=== PATIENT | male | born 1960 | race Caucasian/White ===

== ENCOUNTER 2019-09-27 18:44 | Inpatient (IN) | payer MEDICARE, MEDICAID ==
[~2019-09-27] VITALS: Ht 172.7 cm; Wt 70.6 kg
[2019-09-27 19:41] LABS: BASOPHILS % (AUTO) 0.4 % (0.0-2.0); EOSINOPHILS % (AUTO) 1.4 % (1.0-6.0); HEMATOCRIT 38.5 % (41-53); HEMOGLOBIN 12.9 g/dL (13.5-17.5); LYMPHOCYTES # (AUTO) 1.6 K/uL (1.0-4.8); LYMPHOCYTES % (AUTO) 24.5 % (22.0-44.0); MEAN CORPUSCULAR HGB CONC 33.4 G/dL (31.0-37.0); MEAN CORPUSCULAR VOLUME 90 fL (80-100); MONOCYTES # (AUTO) 0.7 K/uL (0.1-1.0); MONOCYTES % (AUTO) 11.3 % (2.0-9.0); NEUTROPHILS % (AUTO) 62.4 % (40.0-70.0); PLATELET COUNT (AUTO) 249 K/uL (150-450); RED BLOOD CELL COUNT(AUTO) 4.29 MIL/uL (4.50-5.90); RED CELL DISTRIBUTION WIDTH 13.4 % (11.5-14.5)
[2019-09-27 19:50] LABS: ANION GAP 13 mmol/L (8-16); CALCIUM, TOTAL 9.5 mg/dL (8.8-10.5); CARBON DIOXIDE 28 mmol/L (22-29); CHLORIDE 103 mmol/L (98-107); CREATININE 1.23 mg/dL (0.60-1.30); GLOMERULAR FILTR. RATE CALC 60 mL/min (>60); GLUCOSE,RANDOM 101 mg/dL (70-110); POTASSIUM 3.3 mmol/L (3.5-5.1); SODIUM SERUM 144 mmol/L (136-145); UREA NITROGEN, BLOOD 30 mg/dL (7-18)
[2019-09-27 19:56] LABS: ALANINE AMINOTRANSFERASE 25 U/L (12-78); ALKALINE PHOSPHATASE 91 U/L (46-116); ASPARTATE AMINOTRANSFERASE 21 U/L (15-37); BILIRUBIN,TOTAL 0.5 mg/dL (0.1-1.0); TOTAL PROTEIN, SERUM 6.9 g/dL (6.4-8.2)
[2019-09-27 21:42] LABS: APPEARANCE,URINE CLEAR (CLEAR); BILIRUBIN,URINE NEGATIVE (NEGATIVE); GLUCOSE, URINE (UA) NEGATIVE (NEGATIVE); KETONES,URINE TRACE mg/dL (NEGATIVE); LEUKOCYTE ESTERASE ,URINE NEGATIVE (NEGATIVE); NITRATE,URINE NEGATIVE (NEGATIVE); OCCULT BLOOD,URINE NEGATIVE (NEGATIVE); PH,URINE 5.5 (5.0-8.0); PROTEIN,URINE NEGATIVE (NEGATIVE); UROBILINOGEN,URINE 0.2 mg/dL (<=1.0)
[2019-09-27 21:47] LABS: AMPHET/METH SCREEN,URINE NEGATIVE (NEGATIVE); BARBITURATE SCREEN, URINE NEGATIVE (NEGATIVE); BENZODIAZEPINES SCREEN,URINE NEGATIVE (NEGATIVE); CANNABINOID SCREEN,URINE POSITIVE (NEGATIVE); COCAINE SCREEN,URINE NEGATIVE (NEGATIVE); METHADONE SCREEN, URINE NEGATIVE (NEGATIVE); OPIATE SCREEN,URINE POSITIVE (NEGATIVE); PHENCYCLIDINE SCREEN,URINE NEGATIVE (NEGATIVE)
[2019-09-27 22:10] LABS: CREATINE KINASE, TOTAL ONLY 114 U/L (39-308)
[2019-09-27] MEDS ORDERED: HALOPERIDOL LACTATE 5 MG/ML VIAL IM ONE (22:30)
[2019-09-27] MEDS ORDERED: LORazepam 2 MG/ML VIAL IM ONE (22:30)
[2019-09-27] MEDS ORDERED: LORazepam 2 MG TABLET PO PRN (22:45)
[2019-09-27 23:12] LABS: BACTERIA,URINE None Seen /HPF (None Seen); RBC,URINE None Seen /HPF (0-2); SQUAMOUS EPITHELIAL CELL,UR Rare /LPF (None Seen); WBC,URINE 0-2 /HPF (0-5)
[2019-09-28 02:47] VITALS: BP 141/78
[2019-09-28] MEDS ORDERED: POTASSIUM CHLORIDE 20 MEQ ER TABLET PO ONE (06:30)
[2019-09-28 08:18] LABS: CHOL/HDL RATIO 2.2 (4.2-7.3)
[2019-09-28 08:28] VITALS: BP 125/74
[2019-09-28] MEDS ORDERED: CloNIDine HCL 0.1 MG TABLET PO PRN (09:45)
[2019-09-28] MEDS ORDERED: LOPERAMIDE HCL 2 MG CAPSULE PO PRN ×2 (09:45→12:45)
[2019-09-28] MEDS ORDERED: MAGNESIUM HYDROXIDE SUSPENSION 30 ML UDCUP PO PRN ×2 (09:45→12:45)
[2019-09-28] MEDS ORDERED: GuaiFENesin/D-METHORPHAN [SUGAR-FREE] 200-20MG/10 ML SYRUP UDCUP PO PRN ×2 (09:45→12:45)
[2019-09-28] MEDS ORDERED: ACETAMINOPHEN 325 MG TABLET PO PRN ×2 (09:45→12:45)
[2019-09-28] MEDS ORDERED: NICOTINE 14 MG/24 HOUR PATCH TD PRN (09:45)
[2019-09-28] MEDS ORDERED: ALBUTEROL SULFATE HFA 90 MCG/PUFF 8 GM INHALER IH PRN (09:45)
[2019-09-28] MEDS ORDERED: MAG HYDROX/AL HYDROX/SIMETH ES 30 ML SUSPENSION UDCUP PO PRN ×2 (09:45→12:45)
[2019-09-28] MEDS ORDERED: ONDANSETRON HCL 4 MG TABLET PO PRN (09:45)
[2019-09-28] MEDS ORDERED: DOCUSATE SODIUM 100 MG CAPSULE PO PRN (09:45)
[2019-09-28] MEDS ORDERED: PETROLATUM,WHITE 28 GM JELLY TP PRN (09:45)
[2019-09-28] MEDS ORDERED: TUBERCULIN, PURIFIED PROTEIN DERIVATIVE 5 TU/0.1 ML SYRINGE ID ONE (12:45)
[2019-09-28] MEDS ORDERED: HydrOXYzine PAMOATE 50 MG CAPSULE PO PRN (12:45)
[2019-09-28] MEDS ORDERED: PROMETHAZINE HCL 25 MG TABLET PO PRN (12:45)
[2019-09-28 16:44] VITALS: BP 115/92
[2019-09-28] MEDS: IBUPROFEN 400 MG TABLET PO PRN (16:51)
[2019-09-28] MEDS: THIAMINE 100 MG TABLET PO SCH (16:51)
[2019-09-28] MEDS: OLANZapine 5 MG RAPDIS TABLET PO SCH (20:12)
[2019-09-29] VITALS (10 sets, daily range): BP systolic 141–167; BP diastolic 86–113
[2019-09-29] MEDS: DIAZEPAM 10 MG TABLET PO PRN ×5 (00:04→22:33)
[2019-09-29] MEDS: ZOLPIDEM TARTRATE 10 MG TABLET PO PRN (00:04)
[2019-09-29] MEDS: OLANZapine 5 MG RAPDIS TABLET PO PRN ×2 (04:59→09:14)
[2019-09-29] MEDS: THIAMINE 100 MG TABLET PO SCH ×2 (08:20→16:15)
[2019-09-29] MEDS: FOLIC ACID 1 MG TABLET PO SCH (08:20)
[2019-09-29] MEDS: MULTIVITAMINS WITH MINERALS, THERAPEUTIC TABLET PO SCH (08:20)
[2019-09-29] MEDS: NALTREXONE HCL 50 MG TABLET PO SCH (08:20)
[2019-09-29 08:24] LABS: HEMOGLOBIN A1C 5.8 % (3.8-5.6)
[2019-09-29 08:46] LABS: CHOL/HDL RATIO 2.4 (4.2-7.3); FREE T4 (FREE THYROXINE) 1.28 ng/dL (0.76-1.46); POTASSIUM 3.1 mmol/L (3.5-5.1); THYROID STIMULATING HORMONE 7.29 uIU/mL (0.36-3.74)
[2019-09-29] MEDS: AmLODIPine BESYLATE 5 MG TABLET PO SCH (09:14)
[2019-09-29] MEDS: IBUPROFEN 400 MG TABLET PO PRN (09:15)
[2019-09-29] MEDS ORDERED: DiphenhydrAMINE HCL 50 MG/ML VIAL IM ONE (09:30)
[2019-09-29] MEDS ORDERED: HALOPERIDOL LACTATE 5 MG/ML VIAL IM ONE (09:30)
[2019-09-29] MEDS ORDERED: HydrOXYzine PAMOATE 50 MG CAPSULE PO PRN (09:30)
[2019-09-29] MEDS ORDERED: LORazepam 2 MG/ML VIAL IM ONE (09:30)
[2019-09-29] MEDS ORDERED: IBUPROFEN 600 MG TABLET PO PRN (09:30)
[2019-09-29] MEDS ORDERED: MAG HYDROX/AL HYDROX/SIMETH ES 30 ML SUSPENSION UDCUP PO PRN (09:30)
[2019-09-29] MEDS ORDERED: ATOR40TA28 PO (09:43)
[2019-09-29] MEDS ORDERED: CHL25 PO (09:43)
[2019-09-29] MEDS ORDERED: SIMV-260 PO (09:43)
[2019-09-29] MEDS ORDERED: METO-558 PO (09:43)
[2019-09-29] MEDS ORDERED: CYCL10 PO (09:43)
[2019-09-29] MEDS ORDERED: DULO30CA2 PO (09:43)
[2019-09-29] MEDS ORDERED: PANT-31 PO (09:43)
[2019-09-29] MEDS ORDERED: AMLO10TA7 PO (09:43)
[2019-09-29] MEDS ORDERED: ASPI-1111 PO (09:43)
[2019-09-29] MEDS: CloNIDine HCL 0.1 MG TABLET PO SCH ×3 (12:16→21:34)
[2019-09-29] MEDS ORDERED: POTASSIUM CHLORIDE 20 MEQ ER TABLET PO ONE (16:30)
[2019-09-29] MEDS: OLANZapine 5 MG RAPDIS TABLET PO SCH (20:18)
[2019-09-30] VITALS (16 sets, daily range): BP systolic 95–190; BP diastolic 65–110
[2019-09-30] MEDS: CloNIDine HCL 0.1 MG TABLET PO PRN (01:56)
[2019-09-30] MEDS: IBUPROFEN 400 MG TABLET PO PRN ×3 (01:56→20:08)
[2019-09-30] MEDS: ZOLPIDEM TARTRATE 10 MG TABLET PO PRN ×2 (02:42→23:22)
[2019-09-30] MEDS: CloNIDine HCL 0.1 MG TABLET PO SCH ×4 (05:52→21:00)
[2019-09-30] MEDS: MULTIVITAMINS WITH MINERALS, THERAPEUTIC TABLET PO SCH (08:46)
[2019-09-30] MEDS: DIAZEPAM 10 MG TABLET PO SCH ×4 (08:46→20:09)
[2019-09-30] MEDS: FOLIC ACID 1 MG TABLET PO SCH (08:47)
[2019-09-30] MEDS: THIAMINE 100 MG TABLET PO SCH ×2 (08:47→16:44)
[2019-09-30] MEDS: NALTREXONE HCL 50 MG TABLET PO SCH (08:47)
[2019-09-30] MEDS: AmLODIPine BESYLATE 5 MG TABLET PO SCH (08:47)
[2019-09-30] MEDS: OLANZapine 5 MG RAPDIS TABLET PO PRN (10:14)
[2019-09-30] MEDS ORDERED: POTASSIUM CHLORIDE 20 MEQ ER TABLET PO ONE (10:15)
[2019-09-30] MEDS: OLANZapine 5 MG RAPDIS TABLET PO SCH (20:09)
[2019-10-01] VITALS (9 sets, daily range): BP systolic 93–154; BP diastolic 73–112
[2019-10-01] MEDS: TraMADol HCL 50 MG TABLET PO PRN ×2 (01:12→23:40)
[2019-10-01] MEDS: CloNIDine HCL 0.1 MG TABLET PO SCH ×4 (06:01→21:41)
[2019-10-01] MEDS: TAMSULOSIN HCL 0.4 MG CAPSULE PO SCH (08:17)
[2019-10-01] MEDS: FINASTERIDE 5 MG TABLET PO SCH (08:17)
[2019-10-01] MEDS: THIAMINE 100 MG TABLET PO SCH ×2 (08:17→16:15)
[2019-10-01] MEDS: MULTIVITAMINS WITH MINERALS, THERAPEUTIC TABLET PO SCH (08:17)
[2019-10-01] MEDS: NALTREXONE HCL 50 MG TABLET PO SCH (08:17)
[2019-10-01] MEDS: DIAZEPAM 10 MG TABLET PO SCH ×4 (08:17→20:43)
[2019-10-01] MEDS: AmLODIPine BESYLATE 5 MG TABLET PO SCH (08:17)
[2019-10-01] MEDS: FOLIC ACID 1 MG TABLET PO SCH (08:17)
[2019-10-01] MEDS: OLANZapine 5 MG RAPDIS TABLET PO SCH (20:43)
[2019-10-01] MEDS: DIAZEPAM 10 MG TABLET PO PRN (23:47)
[2019-10-02 00:45] VITALS: BP 112/75
[2019-10-02] MEDS: OLANZapine 5 MG RAPDIS TABLET PO PRN (03:23)
[2019-10-02] MEDS: DIAZEPAM 10 MG TABLET PO PRN (03:23)
[2019-10-02] MEDS: CloNIDine HCL 0.1 MG TABLET PO SCH ×4 (05:56→21:50)
[2019-10-02] MEDS ORDERED: DIAZEPAM 5 MG TABLET PO PRN (07:00)
[2019-10-02 08:00] VITALS: BP 137/91
[2019-10-02] MEDS: MULTIVITAMINS WITH MINERALS, THERAPEUTIC TABLET PO SCH (08:43)
[2019-10-02] MEDS: DIAZEPAM 5 MG TABLET PO SCH ×4 (08:43→20:50)
[2019-10-02] MEDS: AmLODIPine BESYLATE 5 MG TABLET PO SCH (08:43)
[2019-10-02] MEDS: THIAMINE 100 MG TABLET PO SCH ×2 (08:43→16:36)
[2019-10-02] MEDS: FOLIC ACID 1 MG TABLET PO SCH (08:44)
[2019-10-02] MEDS: TAMSULOSIN HCL 0.4 MG CAPSULE PO SCH (08:44)
[2019-10-02] MEDS: DISULFIRAM 250 MG TABLET PO SCH (08:45)
[2019-10-02 12:00] VITALS: BP 141/101
[2019-10-02] MEDS: FINASTERIDE 5 MG TABLET PO SCH (12:28)
[2019-10-02 16:36] VITALS: BP 120/80
[2019-10-02 16:39] VITALS: BP 120/80
[2019-10-02] MEDS: OLANZapine 5 MG RAPDIS TABLET PO SCH (20:50)
[2019-10-03] VITALS (10 sets, daily range): BP systolic 98–140; BP diastolic 71–92
[2019-10-03] MEDS: ZOLPIDEM TARTRATE 10 MG TABLET PO PRN (00:40)
[2019-10-03] MEDS: TraMADol HCL 50 MG TABLET PO PRN ×3 (02:06→20:37)
[2019-10-03] MEDS: CloNIDine HCL 0.1 MG TABLET PO SCH ×4 (06:02→22:06)
[2019-10-03] MEDS ORDERED: DIAZEPAM 5 MG TABLET PO PRN (07:00)
[2019-10-03] MEDS: MULTIVITAMINS WITH MINERALS, THERAPEUTIC TABLET PO SCH (08:20)
[2019-10-03] MEDS: FINASTERIDE 5 MG TABLET PO SCH (08:21)
[2019-10-03] MEDS: FOLIC ACID 1 MG TABLET PO SCH (08:21)
[2019-10-03] MEDS: THIAMINE 100 MG TABLET PO SCH ×2 (08:21→16:34)
[2019-10-03] MEDS: TAMSULOSIN HCL 0.4 MG CAPSULE PO SCH (08:22)
[2019-10-03] MEDS: DISULFIRAM 250 MG TABLET PO SCH (08:23)
[2019-10-03] MEDS: AmLODIPine BESYLATE 5 MG TABLET PO SCH (11:35)
[2019-10-03] MEDS: OLANZapine 5 MG RAPDIS TABLET PO SCH (20:36)
[2019-10-04] VITALS (7 sets, daily range): BP systolic 114–151; BP diastolic 60–106
[2019-10-04] MEDS: CloNIDine HCL 0.1 MG TABLET PO PRN (01:49)
[2019-10-04] MEDS: ZOLPIDEM TARTRATE 10 MG TABLET PO PRN ×2 (02:25→22:09)
[2019-10-04] MEDS: CloNIDine HCL 0.1 MG TABLET PO SCH ×4 (05:58→20:58)
[2019-10-04] MEDS: MULTIVITAMINS WITH MINERALS, THERAPEUTIC TABLET PO SCH (08:25)
[2019-10-04] MEDS: AmLODIPine BESYLATE 5 MG TABLET PO SCH (08:26)
[2019-10-04] MEDS: DISULFIRAM 250 MG TABLET PO SCH (08:26)
[2019-10-04] MEDS: FINASTERIDE 5 MG TABLET PO SCH (08:26)
[2019-10-04] MEDS: FOLIC ACID 1 MG TABLET PO SCH (08:26)
[2019-10-04] MEDS: THIAMINE 100 MG TABLET PO SCH ×2 (08:26→16:46)
[2019-10-04] MEDS: TAMSULOSIN HCL 0.4 MG CAPSULE PO SCH (08:26)
[2019-10-04] MEDS: TraMADol HCL 50 MG TABLET PO PRN (13:00)
[2019-10-04] MEDS: OLANZapine 5 MG RAPDIS TABLET PO SCH (20:16)
[2019-10-04] MEDS ORDERED: OLAN5TAB30 PO (20:31)
[2019-10-04] MEDS ORDERED: DISU250 PO (20:31)
[2019-10-05 00:53] VITALS: BP 115/81
[2019-10-05] MEDS: TraMADol HCL 50 MG TABLET PO PRN ×3 (01:41→16:19)
[2019-10-05] MEDS: CloNIDine HCL 0.1 MG TABLET PO SCH ×4 (06:04→22:03)
[2019-10-05 06:05] VITALS: BP 143/90
[2019-10-05] MEDS: MULTIVITAMINS WITH MINERALS, THERAPEUTIC TABLET PO SCH (09:19)
[2019-10-05] MEDS: AmLODIPine BESYLATE 5 MG TABLET PO SCH (09:19)
[2019-10-05] MEDS: THIAMINE 100 MG TABLET PO SCH ×2 (09:19→16:19)
[2019-10-05] MEDS: FINASTERIDE 5 MG TABLET PO SCH (09:20)
[2019-10-05] MEDS: FOLIC ACID 1 MG TABLET PO SCH (09:20)
[2019-10-05] MEDS: DISULFIRAM 250 MG TABLET PO SCH (09:20)
[2019-10-05] MEDS: TAMSULOSIN HCL 0.4 MG CAPSULE PO SCH (09:20)
[2019-10-05 10:22] VITALS: BP 123/96
[2019-10-05 16:20] VITALS: BP 113/79
[2019-10-05] MEDS: OLANZapine 10 MG RAPDIS TABLET PO SCH (20:38)
[2019-10-05] MEDS: DIVALPROEX SODIUM 250 MG ER TABLET PO SCH (20:38)
[2019-10-05 22:03] VITALS: BP 139/79
[2019-10-06 01:05] VITALS: BP 151/110
[2019-10-06] MEDS: TraMADol HCL 50 MG TABLET PO PRN (01:08)
[2019-10-06] MEDS: CloNIDine HCL 0.1 MG TABLET PO PRN (01:08)
[2019-10-06 02:05] VITALS: BP 97/67
[2019-10-06] MEDS: CloNIDine HCL 0.1 MG TABLET PO SCH ×4 (05:56→20:36)
[2019-10-06] MEDS: FINASTERIDE 5 MG TABLET PO SCH (08:02)
[2019-10-06] MEDS: TAMSULOSIN HCL 0.4 MG CAPSULE PO SCH (08:02)
[2019-10-06] MEDS: FOLIC ACID 1 MG TABLET PO SCH (08:02)
[2019-10-06] MEDS: MULTIVITAMINS WITH MINERALS, THERAPEUTIC TABLET PO SCH (08:02)
[2019-10-06] MEDS: AmLODIPine BESYLATE 5 MG TABLET PO SCH (08:02)
[2019-10-06] MEDS: DISULFIRAM 250 MG TABLET PO SCH (08:02)
[2019-10-06] MEDS: THIAMINE 100 MG TABLET PO SCH ×2 (08:02→16:48)
[2019-10-06 08:46] VITALS: BP 148/80
[2019-10-06] MEDS: BENZOCAINE 10% 7 GM GEL TP PRN ×2 (11:19→16:49)
[2019-10-06 17:51] VITALS: BP 132/72
[2019-10-06] MEDS: OLANZapine 10 MG RAPDIS TABLET PO SCH (20:37)
[2019-10-06 21:27] VITALS: BP 124/91
[2019-10-06] MEDS: DIVALPROEX SODIUM 250 MG ER TABLET PO SCH (21:35)
[2019-10-07 01:40] VITALS: BP 134/92
[2019-10-07] MEDS: TraMADol HCL 50 MG TABLET PO PRN ×2 (01:49→13:03)
[2019-10-07] MEDS: OLANZapine 5 MG RAPDIS TABLET PO PRN ×2 (01:49→18:42)
[2019-10-07 05:53] VITALS: BP 141/85
[2019-10-07] MEDS: CloNIDine HCL 0.1 MG TABLET PO SCH ×3 (05:57→16:02)
[2019-10-07] MEDS: BENZOCAINE 10% 7 GM GEL TP PRN ×2 (05:59→13:18)
[2019-10-07] MEDS: AmLODIPine BESYLATE 5 MG TABLET PO SCH (08:02)
[2019-10-07] MEDS: MULTIVITAMINS WITH MINERALS, THERAPEUTIC TABLET PO SCH (08:02)
[2019-10-07] MEDS: TAMSULOSIN HCL 0.4 MG CAPSULE PO SCH (08:02)
[2019-10-07] MEDS: THIAMINE 100 MG TABLET PO SCH ×2 (08:03→16:02)
[2019-10-07] MEDS: FOLIC ACID 1 MG TABLET PO SCH (08:03)
[2019-10-07] MEDS: DISULFIRAM 250 MG TABLET PO SCH (08:03)
[2019-10-07] MEDS: FINASTERIDE 5 MG TABLET PO SCH (08:03)
[2019-10-07 09:13] VITALS: BP 213/86
[2019-10-07 13:02] VITALS: BP 141/75
[2019-10-07 16:22] VITALS: BP 137/83
[2019-10-07] MEDS ORDERED: FINA-27 PO ×2 (19:09→19:10)
[2019-10-07] MEDS ORDERED: TAMS-13 PO (19:11)
[2019-10-07] MEDS ORDERED: AMLO5TAB9 PO (19:13)
[2019-10-07] MEDS: DIVALPROEX SODIUM 250 MG ER TABLET PO SCH (20:19)
[2019-10-07] MEDS: OLANZapine 10 MG RAPDIS TABLET PO SCH (20:19)
[2019-10-07] MEDS ORDERED: OLAN5TAB40 PO (21:00)
[2019-10-08 03:20] VITALS: BP 148/105
[2019-10-08] MEDS: TraMADol HCL 50 MG TABLET PO PRN (03:23)
[2019-10-08] MEDS: OLANZapine 5 MG RAPDIS TABLET PO PRN (03:24)
[2019-10-08 04:30] VITALS: BP 137/84
[2019-10-08] MEDS: CloNIDine HCL 0.1 MG TABLET PO SCH ×2 (06:00→06:04)
[2019-10-08] MEDS: TAMSULOSIN HCL 0.4 MG CAPSULE PO SCH ×2 (08:06→09:08)
[2019-10-08] MEDS: DISULFIRAM 250 MG TABLET PO SCH ×2 (08:06→09:10)
[2019-10-08] MEDS: FINASTERIDE 5 MG TABLET PO SCH ×2 (08:06→09:10)
[2019-10-08] MEDS: MULTIVITAMINS WITH MINERALS, THERAPEUTIC TABLET PO SCH ×2 (08:06→09:08)
[2019-10-08] MEDS: AmLODIPine BESYLATE 5 MG TABLET PO SCH ×2 (08:06→09:08)
[2019-10-08] MEDS ORDERED: DIVA500T52 PO (08:19)
[2019-10-08] MEDS ORDERED: DIVA250T45 PO (08:19)
[2019-10-08] MEDS ORDERED: OLAN10TA6 PO (08:19)
[2019-10-08] MEDS: THIAMINE 100 MG TABLET PO SCH (09:08)
[2019-10-08] MEDS: FOLIC ACID 1 MG TABLET PO SCH (09:08)
== END 2019-10-08 08:30 | disposition home or self-care (01) | DRG 885 ==
LOC: EMS 18:53 → 3EX 23:45
PROVIDERS: ADMIT Psychiatry & Neurology Psychiatry; ATTEND Psychiatry & Neurology Psychiatry
DX: F29 Unspecified psychosis not due to a substance or known physiological condition (principal); E87.6 Hypokalemia; D64.9 Anemia, unspecified; F10.10 Alcohol abuse, uncomplicated; F19.10 Other psychoactive substance abuse, uncomplicated; R00.0 Tachycardia, unspecified; I10 Essential (primary) hypertension; F12.90 Cannabis use, unspecified, uncomplicated; F17.210 Nicotine dependence, cigarettes, uncomplicated; K59.00 Constipation, unspecified; F20.9 Schizophrenia, unspecified; F41.8 Other specified anxiety disorders; G89.29 Other chronic pain; R03.0 Elevated blood-pressure reading, without diagnosis of hypertension; Z91.19 Patient's noncompliance with other medical treatment and regimen
CPT/HCPCS: 70450; 83036; 84132; 84439; 84443; 86592; 87081; 93005; 97161; G0378; G0480; J1200; J1630; J2060

== ENCOUNTER 2021-01-25 11:23 | Inpatient (IN) | payer MEDICARE, MEDICAID ==
[~2021-01-25] VITALS: Ht 167.6 cm; Wt 73.6 kg
[~2021-01-25 11:23] MED LIST: AMLO-257 PO; DISU250 PO; DIVA-80 PO; DIVA-85 PO; FINA-27 PO; OLAN10TA26 PO; TAMS-13 PO
[2021-01-25] MEDS ORDERED: DiphenhydrAMINE HCL 50 MG/ML VIAL IM ONE (12:00)
[2021-01-25] MEDS ORDERED: HALOPERIDOL LACTATE 5 MG/ML VIAL IM ONE (12:00)
[2021-01-25] MEDS ORDERED: LORazepam 2 MG/ML VIAL IM ONE (12:00)
[2021-01-25 14:22] LABS: BASOPHILS % (AUTO) 0.4 % (0.0-2.0); EOSINOPHILS % (AUTO) 0.4 % (1.0-6.0); HEMATOCRIT 39.9 % (41-53); HEMOGLOBIN 12.8 g/dL (13.5-17.5); LYMPHOCYTES # (AUTO) 1.5 K/uL (1.0-4.8); LYMPHOCYTES % (AUTO) 18.4 % (22.0-44.0); MEAN CORPUSCULAR HEMOGLOBIN 29.7 pg (26.0-34.0); MEAN CORPUSCULAR HGB CONC 32.2 G/dL (31.0-37.0); MEAN CORPUSCULAR VOLUME 92 fL (80-100); MONOCYTES # (AUTO) 0.7 K/uL (0.1-1.0); MONOCYTES % (AUTO) 8.9 % (2.0-9.0); NEUTROPHILS # (AUTO) 5.8 K/uL (1.8-7.7); NEUTROPHILS % (AUTO) 71.9 % (40.0-70.0); PLATELET COUNT (AUTO) 239 K/uL (150-450); RED BLOOD CELL COUNT(AUTO) 4.32 MIL/uL (4.50-5.90); RED CELL DISTRIBUTION WIDTH 14.3 % (11.5-14.5)
[2021-01-25 14:23] LABS: COVID AG,FIA SOURCE NASOPHARYNGEAL
[2021-01-25 14:32] LABS: ANION GAP 7 mmol/L (8-16); CARBON DIOXIDE 28 mmol/L (22-29); CHLORIDE 106 mmol/L (98-107); CREATININE 1.05 mg/dL (0.60-1.30); GLOMERULAR FILTR. RATE CALC > 60 mL/min (>60); GLUCOSE,RANDOM 96 mg/dL (70-110); POTASSIUM 4.2 mmol/L (3.5-5.1); SODIUM SERUM 141 mmol/L (136-145); UREA NITROGEN, BLOOD 22 mg/dL (7-18)
[2021-01-25 14:38] LABS: ALANINE AMINOTRANSFERASE 23 U/L (12-78); ALKALINE PHOSPHATASE 115 U/L (46-116); ASPARTATE AMINOTRANSFERASE 19 U/L (15-37); BILIRUBIN,TOTAL 0.7 mg/dL (0.1-1.0); TOTAL PROTEIN, SERUM 7.6 g/dL (6.4-8.2)
[2021-01-25 20:16] VITALS: BP 154/91
[2021-01-25] MEDS ORDERED: ONDANSETRON HCL 4 MG TABLET PO PRN (20:30)
[2021-01-26] MEDS: LORazepam 2 MG TABLET PO PRN ×2 (00:37→08:30)
[2021-01-26] MEDS ORDERED: CloNIDine HCL 0.1 MG TABLET ONE (06:03)
[2021-01-26 06:05] VITALS: BP 176/104
[2021-01-26] MEDS ORDERED: CloNIDine HCL 0.1 MG TABLET PO PRN ×2 (06:15→11:30)
[2021-01-26 07:00] VITALS: BP 159/99
[2021-01-26] MEDS: HALOPERIDOL 5 MG TABLET PO PRN (08:30)
[2021-01-26] MEDS: AmLODIPine BESYLATE 10 MG TABLET PO SCH (08:53)
[2021-01-26] MEDS: CARVEDILOL 25 MG TABLET PO SCH ×2 (08:53→16:42)
[2021-01-26] MEDS: GABAPENTIN 400 MG CAPSULE PO SCH ×2 (08:53→16:43)
[2021-01-26] MEDS: LOVASTATIN 20 MG TABLET PO SCH ×2 (08:53→16:42)
[2021-01-26 10:39] VITALS: BP 179/85
[2021-01-26 10:40] LABS: AMPHET/METH SCREEN,URINE NEGATIVE (NEGATIVE); BARBITURATE SCREEN, URINE NEGATIVE (NEGATIVE); BENZODIAZEPINES SCREEN,URINE NEGATIVE (NEGATIVE); CANNABINOID SCREEN,URINE POSITIVE (NEGATIVE); COCAINE SCREEN,URINE NEGATIVE (NEGATIVE); METHADONE SCREEN, URINE NEGATIVE (NEGATIVE); OPIATE SCREEN,URINE NEGATIVE (NEGATIVE); PHENCYCLIDINE SCREEN,URINE NEGATIVE (NEGATIVE)
[2021-01-26 11:19] LABS: APPEARANCE,URINE CLEAR (CLEAR); BILIRUBIN,URINE NEGATIVE (NEGATIVE); GLUCOSE, URINE (UA) NEGATIVE (NEGATIVE); KETONES,URINE NEGATIVE (NEGATIVE); LEUKOCYTE ESTERASE ,URINE NEGATIVE (NEGATIVE); NITRATE,URINE NEGATIVE (NEGATIVE); OCCULT BLOOD,URINE NEGATIVE (NEGATIVE); PH,URINE 6.5 (5.0-8.0); PROTEIN,URINE NEGATIVE (NEGATIVE); UROBILINOGEN,URINE 0.2 mg/dL (<=1.0)
[2021-01-26] MEDS ORDERED: ONDANSETRON HCL 4 MG TABLET PO PRN (11:30)
[2021-01-26] MEDS ORDERED: ALBUTEROL SULFATE HFA 90 MCG/PUFF 8 GM INHALER IH PRN (11:30)
[2021-01-26] MEDS ORDERED: GuaiFENesin/D-METHORPHAN [SUGAR-FREE] 200-20MG/10 ML SYRUP UDCUP PO PRN (11:30)
[2021-01-26] MEDS ORDERED: MAGNESIUM HYDROXIDE SUSPENSION 30 ML UDCUP PO PRN (11:30)
[2021-01-26] MEDS ORDERED: LOPERAMIDE HCL 2 MG CAPSULE PO PRN (11:30)
[2021-01-26] MEDS ORDERED: NICOTINE 14 MG/24 HOUR PATCH TD PRN (11:30)
[2021-01-26] MEDS ORDERED: ACETAMINOPHEN 325 MG TABLET PO PRN (11:30)
[2021-01-26] MEDS ORDERED: PETROLATUM,WHITE 28 GM JELLY TP PRN (11:30)
[2021-01-26] MEDS ORDERED: MAG HYDROX/AL HYDROX/SIMETH ES 30 ML SUSPENSION UDCUP PO PRN (11:30)
[2021-01-26] MEDS ORDERED: DOCUSATE SODIUM 100 MG CAPSULE PO PRN (11:30)
[2021-01-26] MEDS ORDERED: ATOR40TA71 PO (11:39)
[2021-01-26] MEDS ORDERED: AMLO-258 PO (11:39)
[2021-01-26] MEDS ORDERED: CARV25TA32 PO (11:39)
[2021-01-26] MEDS ORDERED: GABA-1181 PO (11:39)
[2021-01-26] MEDS ORDERED: LOSA50TA37 PO (11:39)
[2021-01-26 18:31] VITALS: BP 144/87
[2021-01-26] MEDS: DIVALPROEX SODIUM 250 MG ER TABLET PO SCH (21:01)
[2021-01-26] MEDS: OLANZapine 10 MG RAPDIS TABLET PO SCH (21:01)
[2021-01-26] MEDS: ZOLPIDEM TARTRATE 10 MG TABLET PO PRN (22:13)
[2021-01-27 05:26] VITALS: BP 151/94
[2021-01-27] MEDS: AmLODIPine BESYLATE 10 MG TABLET PO SCH (09:10)
[2021-01-27] MEDS: CARVEDILOL 25 MG TABLET PO SCH ×2 (09:10→16:05)
[2021-01-27] MEDS: LOVASTATIN 20 MG TABLET PO SCH ×2 (09:10→16:04)
[2021-01-27] MEDS: GABAPENTIN 400 MG CAPSULE PO SCH ×2 (09:10→16:05)
[2021-01-27 10:23] VITALS: BP 141/90
[2021-01-27 17:18] VITALS: BP 155/94
[2021-01-27] MEDS: DIVALPROEX SODIUM 250 MG ER TABLET PO SCH (19:58)
[2021-01-27] MEDS: OLANZapine 10 MG RAPDIS TABLET PO SCH (19:58)
[2021-01-27 20:00] VITALS: BP 143/77
[2021-01-27] MEDS: ZOLPIDEM TARTRATE 10 MG TABLET PO PRN (20:54)
[2021-01-28] MEDS: LORazepam 2 MG TABLET PO PRN ×2 (00:26→09:01)
[2021-01-28 05:02] VITALS: BP 138/70
[2021-01-28 08:37] VITALS: BP 145/91
[2021-01-28] MEDS: LOVASTATIN 20 MG TABLET PO SCH ×2 (09:00→16:52)
[2021-01-28] MEDS: AmLODIPine BESYLATE 10 MG TABLET PO SCH (09:01)
[2021-01-28] MEDS: CARVEDILOL 25 MG TABLET PO SCH ×2 (09:01→16:52)
[2021-01-28] MEDS: GABAPENTIN 400 MG CAPSULE PO SCH ×2 (09:01→16:52)
[2021-01-28 16:31] VITALS: BP 121/78
[2021-01-28] MEDS: DIVALPROEX SODIUM 250 MG ER TABLET PO SCH (20:31)
[2021-01-28] MEDS: OLANZapine 10 MG RAPDIS TABLET PO SCH (20:32)
[2021-01-28] MEDS: ZOLPIDEM TARTRATE 10 MG TABLET PO PRN (20:34)
[2021-01-29 04:18] VITALS: BP 158/78
[2021-01-29 08:24] VITALS: BP 141/74
[2021-01-29] MEDS: LOVASTATIN 20 MG TABLET PO SCH ×2 (08:31→16:06)
[2021-01-29] MEDS: CARVEDILOL 25 MG TABLET PO SCH ×2 (08:31→16:06)
[2021-01-29] MEDS: GABAPENTIN 400 MG CAPSULE PO SCH ×2 (08:31→16:06)
[2021-01-29] MEDS: AmLODIPine BESYLATE 10 MG TABLET PO SCH (08:31)
[2021-01-29] MEDS: LORazepam 2 MG TABLET PO PRN ×2 (08:35→13:05)
[2021-01-29 13:05] VITALS: BP 137/81
[2021-01-29] MEDS: IBUPROFEN 400 MG TABLET PO PRN (13:05)
[2021-01-29 16:30] VITALS: BP 107/70
[2021-01-29] MEDS: DIVALPROEX SODIUM 250 MG ER TABLET PO SCH (20:03)
[2021-01-29] MEDS: OLANZapine 10 MG RAPDIS TABLET PO SCH (20:03)
[2021-01-29] MEDS: ZOLPIDEM TARTRATE 10 MG TABLET PO PRN (20:15)
[2021-01-30 02:03] VITALS: BP 97/68
[2021-01-30] MEDS: GABAPENTIN 400 MG CAPSULE PO SCH ×2 (08:15→16:08)
[2021-01-30] MEDS: LOVASTATIN 20 MG TABLET PO SCH ×2 (08:15→16:08)
[2021-01-30] MEDS: AmLODIPine BESYLATE 10 MG TABLET PO SCH (08:15)
[2021-01-30] MEDS: CARVEDILOL 25 MG TABLET PO SCH ×2 (08:15→16:08)
[2021-01-30] MEDS: IBUPROFEN 400 MG TABLET PO PRN (08:27)
[2021-01-30] MEDS: LORazepam 2 MG TABLET PO PRN (08:27)
[2021-01-30 09:10] VITALS: BP 127/76
[2021-01-30 16:12] VITALS: BP 144/77
[2021-01-30] MEDS: ZOLPIDEM TARTRATE 10 MG TABLET PO PRN (20:12)
[2021-01-30] MEDS: DIVALPROEX SODIUM 250 MG ER TABLET PO SCH (20:12)
[2021-01-30] MEDS: OLANZapine 10 MG RAPDIS TABLET PO SCH (20:12)
[2021-01-31] MEDS: LORazepam 2 MG TABLET PO PRN
[2021-01-31] MEDS: HALOPERIDOL 5 MG TABLET PO PRN (00:01)
[2021-01-31 00:50] VITALS: BP 140/79
[2021-01-31 09:44] VITALS: BP 143/97
[2021-01-31] MEDS: GABAPENTIN 400 MG CAPSULE PO SCH ×2 (10:08→16:34)
[2021-01-31] MEDS: AmLODIPine BESYLATE 10 MG TABLET PO SCH (10:08)
[2021-01-31] MEDS: CARVEDILOL 25 MG TABLET PO SCH ×2 (10:08→16:34)
[2021-01-31] MEDS: LOVASTATIN 20 MG TABLET PO SCH ×2 (10:09→16:34)
[2021-01-31 16:29] VITALS: BP 119/90
[2021-01-31] MEDS: DIVALPROEX SODIUM 250 MG ER TABLET PO SCH (21:00)
[2021-01-31] MEDS: OLANZapine 10 MG RAPDIS TABLET PO SCH (21:01)
[2021-02-01 06:31] VITALS: BP 141/89
[2021-02-01 08:38] LABS: FREE T4 (FREE THYROXINE) 1.15 ng/dL (0.76-1.46); THYROID STIMULATING HORMONE 1.55 uIU/mL (0.36-3.74)
[2021-02-01 09:24] VITALS: BP 124/74
[2021-02-01] MEDS: LOVASTATIN 20 MG TABLET PO SCH (09:31)
[2021-02-01] MEDS: AmLODIPine BESYLATE 10 MG TABLET PO SCH (09:31)
[2021-02-01] MEDS: GABAPENTIN 400 MG CAPSULE PO SCH (09:32)
[2021-02-01] MEDS: CARVEDILOL 25 MG TABLET PO SCH (09:32)
[2021-02-01] MEDS ORDERED: DIVA-80 PO (09:41)
[2021-02-01] MEDS ORDERED: CARV25TA32 PO (09:41)
[2021-02-01] MEDS ORDERED: GABA-1181 PO (09:41)
[2021-02-01] MEDS ORDERED: DIVA-85 PO (09:41)
[2021-02-01] MEDS ORDERED: OLAN10TA26 PO (09:41)
[2021-02-01] MEDS ORDERED: AMLO-258 PO (09:41)
== END 2021-02-01 14:02 | disposition home or self-care (01) | DRG 885 ==
LOC: EMS 11:27 → B3A 17:44
DX: F25.0 Schizoaffective disorder, bipolar type (principal); D64.9 Anemia, unspecified; E78.5 Hyperlipidemia, unspecified; E83.51 Hypocalcemia; F12.10 Cannabis abuse, uncomplicated; F14.10 Cocaine abuse, uncomplicated; G47.00 Insomnia, unspecified; G89.29 Other chronic pain; I10 Essential (primary) hypertension; N40.0 Benign prostatic hyperplasia without lower urinary tract symptoms; Z79.899 Other long term (current) drug therapy; Z87.891 Personal history of nicotine dependence; Z20.822 Contact with and (suspected) exposure to COVID-19
CPT/HCPCS: 80053; 80307; 81003; 84439; 84443; 85025; 99291; G0480; J1200; J1630; J2060; Q0162

== ENCOUNTER 2021-10-12 00:41 | Inpatient (IN) | payer MEDICARE, MEDICAID ==
[~2021-10-12] VITALS: Ht 172.7 cm; Wt 75.7 kg
[~2021-10-12 00:41] MED LIST changes: -AMLO-257 PO; +AMLO-258 PO; +ATOR40TA71 PO; +CARV25TA32 PO; -DISU250 PO; +DISU250T8 PO; +GABA-1181 PO
[2021-10-12 01:29] LABS: BASOPHILS % (AUTO) 0.3 % (0.0-2.0); EOSINOPHILS % (AUTO) 0 % (1.0-6.0); HEMATOCRIT 41.6 % (41-53); HEMOGLOBIN 14.2 g/dL (13.5-17.5); LYMPHOCYTES # (AUTO) 1.2 K/uL (1.0-4.8); LYMPHOCYTES % (AUTO) 12.2 % (22.0-44.0); MEAN CORPUSCULAR HEMOGLOBIN 30.7 pg (26.0-34.0); MEAN CORPUSCULAR HGB CONC 34.3 G/dL (31.0-37.0); MEAN CORPUSCULAR VOLUME 90 fL (80-100); MONOCYTES # (AUTO) 0.9 K/uL (0.1-1.0); MONOCYTES % (AUTO) 9.3 % (2.0-9.0); NEUTROPHILS # (AUTO) 7.4 K/uL (1.8-7.7); NEUTROPHILS % (AUTO) 78.2 % (40.0-70.0); PLATELET COUNT (AUTO) 256 K/uL (150-450); RED BLOOD CELL COUNT(AUTO) 4.64 MIL/uL (4.50-5.90); RED CELL DISTRIBUTION WIDTH 13.9 % (11.5-14.5)
[2021-10-12 01:39] LABS: ANION GAP 10 mmol/L (8-16); CALCIUM, TOTAL 9.6 mg/dL (8.8-10.5); CARBON DIOXIDE 31 mmol/L (22-29); CHLORIDE 97 mmol/L (98-107); CREATININE 1.17 mg/dL (0.60-1.30); GLOMERULAR FILTR. RATE CALC > 60 mL/min (>60); GLUCOSE,RANDOM 132 mg/dL (70-110); POTASSIUM 3.2 mmol/L (3.5-5.1); SODIUM SERUM 138 mmol/L (136-145); UREA NITROGEN, BLOOD 23 mg/dL (7-18)
[2021-10-12 01:45] LABS: ALANINE AMINOTRANSFERASE 30 U/L (12-78); ALBUMIN 4.8 g/dL (3.4-5.0); ALKALINE PHOSPHATASE 148 U/L (46-116); ASPARTATE AMINOTRANSFERASE 25 U/L (15-37); BILIRUBIN,TOTAL 1.3 mg/dL (0.1-1.0); TOTAL PROTEIN, SERUM 7.8 g/dL (6.4-8.2)
[2021-10-12] MEDS ORDERED: TraZODone HCL 50 MG TABLET PO ONE (02:30)
[2021-10-12] MEDS ORDERED: HALOPERIDOL 5 MG TABLET PO PRN (03:30)
[2021-10-12 05:13] LABS: APPEARANCE,URINE CLEAR (CLEAR); BILIRUBIN,URINE NEGATIVE (NEGATIVE); GLUCOSE, URINE (UA) NEGATIVE (NEGATIVE); LEUKOCYTE ESTERASE ,URINE NEGATIVE (NEGATIVE); NITRATE,URINE NEGATIVE (NEGATIVE); OCCULT BLOOD,URINE SMALL (NEGATIVE); PROTEIN,URINE 30-70 mg/dL (NEGATIVE); SPECIFIC GRAVITIY, URINE 1.013 (1.003-1.030); UROBILINOGEN,URINE <=1.0 mg/dL (<=1.0)
[2021-10-12 05:18] LABS: AMPHET/METH SCREEN,URINE NEGATIVE (NEGATIVE); BARBITURATE SCREEN, URINE NEGATIVE (NEGATIVE); BENZODIAZEPINES SCREEN,URINE NEGATIVE (NEGATIVE); CANNABINOID SCREEN,URINE POSITIVE (NEGATIVE); COCAINE SCREEN,URINE NEGATIVE (NEGATIVE); METHADONE SCREEN, URINE NEGATIVE (NEGATIVE); OPIATE SCREEN,URINE POSITIVE (NEGATIVE)
[2021-10-12 05:19] LABS: PHENCYCLIDINE SCREEN,URINE NEGATIVE (NEGATIVE)
[2021-10-12 05:23] LABS: BACTERIA,URINE None Seen /HPF (None Seen); HYALINE CASTS, URINE 0-2 /LPF (None Seen); WBC,URINE 0-2 /HPF (0-5)
[2021-10-12 08:44] LABS: COVID AG,FIA SOURCE NASAL SWAB
[2021-10-12 11:00] VITALS: BP 151/94
[2021-10-12] MEDS ORDERED: ACETAMINOPHEN 325 MG TABLET PO PRN (11:30)
[2021-10-12] MEDS ORDERED: CloNIDine HCL 0.1 MG TABLET PO PRN (11:30)
[2021-10-12] MEDS ORDERED: LOPERAMIDE HCL 2 MG CAPSULE PO PRN (11:30)
[2021-10-12] MEDS ORDERED: GuaiFENesin/D-METHORPHAN [SUGAR-FREE] 200-20MG/10 ML SYRUP UDCUP PO PRN (11:30)
[2021-10-12] MEDS ORDERED: ALBUTEROL SULFATE HFA 90 MCG/PUFF 8 GM INHALER IH PRN (11:30)
[2021-10-12] MEDS ORDERED: ONDANSETRON HCL 4 MG TABLET PO PRN (11:30)
[2021-10-12] MEDS ORDERED: DOCUSATE SODIUM 100 MG CAPSULE PO PRN (11:30)
[2021-10-12] MEDS ORDERED: PETROLATUM,WHITE 28 GM JELLY TP PRN (11:30)
[2021-10-12] MEDS ORDERED: MAG HYDROX/AL HYDROX/SIMETH ES 30 ML SUSPENSION UDCUP PO PRN (11:30)
[2021-10-12] MEDS ORDERED: MAGNESIUM HYDROXIDE SUSPENSION 30 ML UDCUP PO PRN (11:30)
[2021-10-12] MEDS ORDERED: NICOTINE 14 MG/24 HOUR PATCH TD PRN (11:30)
[2021-10-12] MEDS ORDERED: PNEUMOCOCCAL VACCINE POLYVALENT 0.5 ML VIAL [PPSV23] IM. ONE (11:45)
[2021-10-12] MEDS: TAMSULOSIN HCL 0.4 MG CAPSULE PO SCH (12:39)
[2021-10-12] MEDS: AmLODIPine BESYLATE 10 MG TABLET PO SCH (12:39)
[2021-10-12] MEDS ORDERED: POTASSIUM CHLORIDE 20 MEQ ER TABLET PO ONE (14:45)
[2021-10-12 16:12] VITALS: BP 138/72
[2021-10-12] MEDS: CARVEDILOL 25 MG TABLET PO SCH (16:32)
[2021-10-12] MEDS: FINASTERIDE 5 MG TABLET PO SCH (16:32)
[2021-10-12] MEDS: LORazepam 2 MG TABLET PO PRN (20:06)
[2021-10-12] MEDS: ATORVASTATIN CALCIUM 40 MG TABLET PO SCH (20:37)
[2021-10-13 00:23] VITALS: BP 130/70
[2021-10-13] MEDS: FINASTERIDE 5 MG TABLET PO SCH (08:12)
[2021-10-13] MEDS: TAMSULOSIN HCL 0.4 MG CAPSULE PO SCH (08:16)
[2021-10-13] MEDS: CARVEDILOL 25 MG TABLET PO SCH ×2 (08:16→18:03)
[2021-10-13] MEDS: AmLODIPine BESYLATE 10 MG TABLET PO SCH (08:16)
[2021-10-13 08:24] VITALS: BP 136/80
[2021-10-13] MEDS: LORazepam 2 MG TABLET PO PRN ×3 (08:33→20:14)
[2021-10-13] MEDS: GABAPENTIN 400 MG CAPSULE PO SCH ×2 (12:41→18:03)
[2021-10-13] MEDS: OLANZapine 10 MG TABLET PO SCH ×2 (12:41→20:14)
[2021-10-13 18:14] VITALS: BP 140/90
[2021-10-13] MEDS: ATORVASTATIN CALCIUM 40 MG TABLET PO SCH (20:14)
[2021-10-13 20:50] VITALS: BP 128/89
[2021-10-13] MEDS: IBUPROFEN 400 MG TABLET PO PRN (21:17)
[2021-10-14 00:31] VITALS: BP 130/81
[2021-10-14] MEDS ORDERED: LORazepam 2 MG/ML VIAL ONE (08:26)
[2021-10-14] MEDS ORDERED: DiphenhydrAMINE HCL 50 MG/ML VIAL ONE (08:27)
[2021-10-14] MEDS ORDERED: HALOPERIDOL LACTATE 5 MG/ML VIAL ONE (08:27)
[2021-10-14 08:37] VITALS: BP 155/99
[2021-10-14] MEDS: CARVEDILOL 25 MG TABLET PO SCH ×3 (09:32→22:07)
[2021-10-14] MEDS: AmLODIPine BESYLATE 10 MG TABLET PO SCH (09:32)
[2021-10-14] MEDS: GABAPENTIN 400 MG CAPSULE PO SCH ×3 (09:32→16:05)
[2021-10-14] MEDS: FINASTERIDE 5 MG TABLET PO SCH (09:33)
[2021-10-14] MEDS: OLANZapine 10 MG TABLET PO SCH ×2 (09:33→20:25)
[2021-10-14] MEDS: TAMSULOSIN HCL 0.4 MG CAPSULE PO SCH (09:33)
[2021-10-14] MEDS ORDERED: HALOPERIDOL LACTATE 5 MG/ML VIAL IM ONE (10:15)
[2021-10-14] MEDS ORDERED: LORazepam 2 MG/ML VIAL IM ONE (10:15)
[2021-10-14] MEDS ORDERED: DiphenhydrAMINE HCL 50 MG/ML VIAL IM ONE (10:15)
[2021-10-14] MEDS: LORazepam 2 MG TABLET PO PRN (16:04)
[2021-10-14] MEDS: IBUPROFEN 400 MG TABLET PO PRN (16:16)
[2021-10-14] MEDS: ATORVASTATIN CALCIUM 40 MG TABLET PO SCH (20:25)
[2021-10-14] MEDS: ZOLPIDEM TARTRATE 10 MG TABLET PO PRN (21:31)
[2021-10-15 04:14] VITALS: BP 148/93
[2021-10-15] MEDS: CARVEDILOL 25 MG TABLET PO SCH ×2 (08:19→17:04)
[2021-10-15] MEDS: OLANZapine 10 MG TABLET PO SCH ×2 (08:20→20:24)
[2021-10-15] MEDS: GABAPENTIN 400 MG CAPSULE PO SCH ×3 (08:20→17:04)
[2021-10-15] MEDS: TAMSULOSIN HCL 0.4 MG CAPSULE PO SCH (08:20)
[2021-10-15] MEDS: FINASTERIDE 5 MG TABLET PO SCH (08:20)
[2021-10-15] MEDS: AmLODIPine BESYLATE 10 MG TABLET PO SCH (08:20)
[2021-10-15] MEDS: LORazepam 2 MG TABLET PO PRN ×3 (08:21→20:24)
[2021-10-15 08:27] VITALS: BP 140/96
[2021-10-15] MEDS: IBUPROFEN 400 MG TABLET PO PRN (14:17)
[2021-10-15 16:38] VITALS: BP 132/80
[2021-10-15] MEDS: ATORVASTATIN CALCIUM 40 MG TABLET PO SCH (20:24)
[2021-10-15] MEDS: ZOLPIDEM TARTRATE 10 MG TABLET PO PRN (21:27)
[2021-10-16] MEDS: LORazepam 2 MG TABLET PO PRN ×2 (01:06→08:04)
[2021-10-16 02:17] VITALS: BP 130/96
[2021-10-16] MEDS: OLANZapine 10 MG TABLET PO SCH (08:04)
[2021-10-16] MEDS: TAMSULOSIN HCL 0.4 MG CAPSULE PO SCH (08:04)
[2021-10-16] MEDS: CARVEDILOL 25 MG TABLET PO SCH (08:04)
[2021-10-16] MEDS: GABAPENTIN 400 MG CAPSULE PO SCH ×2 (08:04→13:00)
[2021-10-16] MEDS: AmLODIPine BESYLATE 10 MG TABLET PO SCH (08:04)
[2021-10-16] MEDS: FINASTERIDE 5 MG TABLET PO SCH (08:05)
[2021-10-16 08:20] VITALS: BP 108/74
[2021-10-16] MEDS ORDERED: OLAN10 PO (11:20)
[2021-10-16] MEDS ORDERED: GABA-1201 PO (11:20)
== END 2021-10-16 13:15 | disposition home or self-care (01) | DRG 885 ==
LOC: EMS 00:42 → B2S 07:33 → B3A 10-14 08:20
PROVIDERS: ADMIT Psychiatry & Neurology Psychiatry; ATTEND Psychiatry & Neurology Psychiatry
DX: F25.0 Schizoaffective disorder, bipolar type (principal); E78.5 Hyperlipidemia, unspecified; E87.6 Hypokalemia; G89.29 Other chronic pain; I10 Essential (primary) hypertension; N40.0 Benign prostatic hyperplasia without lower urinary tract symptoms; F41.9 Anxiety disorder, unspecified; R73.9 Hyperglycemia, unspecified; Z20.822 Contact with and (suspected) exposure to COVID-19; I25.2 Old myocardial infarction; Z28.21 Immunization not carried out because of patient refusal
CPT/HCPCS: 80053; 81001; 84132; 85025; 99285; G0480; J1200; J1630; J2060